=== PATIENT | male | born 1975 | race Caucasian/White ===

== ENCOUNTER 2020-11-13 11:41 | Emergency (ER) | payer MEDICAID ==
[~2020-11-13] VITALS: Ht 182.9 cm; Wt 88.6 kg
[2020-11-13 11:43] VITALS: BP 144/100
[2020-11-13] MEDS ORDERED: ketorolac trometh. 30mg/ml inj. IV ONE (11:55)
[2020-11-13] MEDS ORDERED: normal saline 1000ML IV soln IVB ONE (11:55)
[2020-11-13] MEDS ORDERED: ondansetron/PF 4mg/2ml inj IV ONE (11:55)
[2020-11-13 12:14] LABS: BASOPHILS % (AUTO) 0.1 % (0-1); EOSINOPHILS # (AUTO) 0.1 X10'3 (0-0.9); EOSINOPHILS % (AUTO) 1.2 % (0-6); HEMATOCRIT 48.6 % (42.0-52.0); HEMOGLOBIN 16.5 g/dl (14.0-17.9); LYMPHOCYTES # (AUTO) 1.7 X10'3 (1.1-4.8); LYMPHOCYTES % (AUTO) 14.9 % (21-51); MEAN CORPUSCULAR HEMOGLOBIN 29.7 PG (27.0-31.0); MEAN CORPUSCULAR HGB CONC 33.9 g/dL (33.0-36.5); MEAN CORPUSCULAR VOLUME 87.7 FL (78-98); MEAN PLATELET VOLUME 8.5 FL (7.4-10.4); MONOCYTES # (AUTO) 0.9 X10'3 (0-0.9); NEUTROPHILS # (AUTO) 8.5 X10'3 (1.8-7.7); NEUTROPHILS % (AUTO) 75.8 % (42-75); PLATELET COUNT 239 X10'3 (140-440); RED BLOOD COUNT 5.54 X10'6 (4.70-6.10); RED CELL DISTRIBUTION WIDTH 13.3 % (11.5-14.5); WHITE BLOOD COUNT 11.2 X10'3 (4.5-11.0)
[2020-11-13 12:19] LABS: ALANINE AMINOTRANSFERASE 65 U/L (12-78); ALBUMIN 4.3 G/DL (3.4-5.0); ALBUMIN/GLOBULIN RATIO 1.1 (1.1-1.5); ALKALINE PHOSPHATASE 99 IU/L (46-116); ANION GAP 7 (8-16); ASPARTATE AMINO TRANSFERASE 29 U/L (10-37); BILIRUBIN,TOTAL 0.3 MG/DL (0.1-1.0); BLOOD UREA NITROGEN 18 MG/DL (7-18); BUN/CREATININE RATIO 13.7 (5.4-32.0); CALCIUM 8.8 MG/DL (8.5-10.1); CHLORIDE 104 MMOL/L (99-107); CREATININE 1.31 MG/DL (0.60-1.10); ETHANOL < 0.010 GM/DL (0.0-0.010); GLUCOSE 111 MG/DL (70-104); LIPASE 67 U/L (73-393); POTASSIUM 4.1 MMOL/L (3.5-5.1); SODIUM 139 MMOL/L (135-145); TOTAL CARBON DIOXIDE 27.7 MMOL/L (24-32); TOTAL PROTEIN 8.1 G/DL (6.4-8.2); eGFR 59 ML/MIN
[2020-11-13 12:29] LABS: CLARITY,URINE SLIGHTLY CLOUDY (Clear); COLOR,URINE YELLOW (Yellow); GLUCOSE, URINE NEGATIVE (Neg); KETONES,URINE NEGATIVE (Neg); LEUKOCYTE ESTERASE ,URINE NEGATIVE (Neg); NITRITES, URINE NEGATIVE (Neg); OCCULT BLOOD,URINE LARGE (Neg); PH,URINE 6.5 (4.8-8.0); PROTEIN,URINE NEGATIVE (Neg); UROBILINOGEN,URINE 0.2 E.U/dL (0.2-1.0)
[2020-11-13 12:30] LABS: UA COLLECTION TYPE CLN CATCH MIDSTREAM
[2020-11-13 12:35] LABS: URINE AMPHETAMINE SCREEN POSITIVE (Neg); URINE BARBITUATE SCREEN NEGATIVE (Neg); URINE BENZODIAZEPINES SCREEN NEGATIVE (Neg); URINE CANNABINOID SCREEN NEGATIVE (Neg); URINE COCAINE SCREEN NEGATIVE (Neg); URINE METHADONE SCREEN NEGATIVE (Neg); URINE OPIATE SCREEN NEGATIVE (Neg); URINE PHENCYCLIDINE SCREEN NEGATIVE (Neg)
[2020-11-13 12:40] LABS: MUCUS STRANDS MODERATE /LPF (Neg); SQUAMOUS EPITHELIAL CELL,UR FEW /LPF (FEW)
[2020-11-13 12:41] LABS: RBC,URINE 50-100 /HPF (0-2)
[2020-11-13 12:42] LABS: BACTERIA,URINE FEW /HPF (Neg); WBC,URINE 0-4 /HPF (0-4)
[2020-11-13] MEDS ORDERED: CefTRIAXone 2gm/D5W 50ml BAG 50 ML IV ONE (13:10)
[2020-11-13] MEDS ORDERED: CEPH250T PO (13:11)
[2020-11-13] MEDS ORDERED: FLO0.4C PO (13:11)
[2020-11-13] MEDS ORDERED: HYDR-3965 PO (13:11)
[2020-11-13] MEDS ORDERED: tamsulosin 0.4mg capsule PO STA (13:14)
[2020-11-13] MEDS ORDERED: tamsulosin 0.4mg capsule PO SCH (21:00)
== END 2020-11-13 14:01 | disposition home or self-care (01) ==
LOC: ER 11:42
DX: N12 Tubulo-interstitial nephritis, not specified as acute or chronic (principal); F17.200 Nicotine dependence, unspecified, uncomplicated; Z87.440 Personal history of urinary (tract) infections; Z87.442 Personal history of urinary calculi
CPT/HCPCS: 36415; 74176; 80053; 80305; 80320; 81001; 83690; 85025; 96361; 96365; 96375; 99284; J0696; J1885; J2405; J7030

== ENCOUNTER 2022-03-01 10:29 | Emergency (ER) | payer MEDICAID ==
[~2022-03-01] VITALS: Ht 182.9 cm; Wt 88.6 kg
[2022-03-01 10:56] VITALS: BP 139/111
--- NOTE | 2022-03-01 12:00 | NUR ---
not in lobby
--- NOTE | 2022-03-01 12:25 | NUR ---
not in lobby 2nd call
--- NOTE | 2022-03-01 12:38 | NUR ---
not in lobby 3rd call
== END 2022-03-01 12:44 | disposition left against medical advice (07) ==
LOC: ER 10:30
DX: R22.32 Localized swelling, mass and lump, left upper limb (principal); Z53.21 Procedure and treatment not carried out due to patient leaving prior to being seen by health care provider

== ENCOUNTER 2022-12-28 20:51 | Emergency (ER) | payer MEDICAID ==
[~2022-12-28] VITALS: Ht 183.5 cm; Wt 81.8 kg
[2022-12-28 20:51] VITALS: BP 152/96
[2022-12-28] MEDS ORDERED: bacitracin 15gm ointment TP ONE (23:20)
[2022-12-28] MEDS ORDERED: NEOM30OI17 TOP (23:20)
== END 2022-12-29 00:07 | disposition home or self-care (01) ==
LOC: ER 20:51
DX: S80.812A Abrasion, left lower leg, initial encounter (principal); Z87.442 Personal history of urinary calculi; Z86.14 Personal history of Methicillin resistant Staphylococcus aureus infection; Z79.899 Other long term (current) drug therapy; X58.XXXA Exposure to other specified factors, initial encounter; Y93.89 Activity, other specified; Y92.89 Other specified places as the place of occurrence of the external cause; Y99.8 Other external cause status
CPT/HCPCS: 99282

== ENCOUNTER 2023-01-02 03:02 | Emergency (ER) | payer MEDICAID ==
[~2023-01-02] VITALS: Ht 182.9 cm; Wt 84.1 kg
[~2023-01-02 03:02] MED LIST: NEOM30OI17 TOP
[2023-01-02] MEDS ORDERED: rifampin 300mg capsule PO SCH (05:10)
[2023-01-02] MEDS ORDERED: DOXYCYCLINE 100MG CAPSULE PO STA (05:10)
[2023-01-02] MEDS ORDERED: RIFA150C7 CORPAK (05:13)
[2023-01-02] MEDS ORDERED: DOXY-11 PO (05:13)
[2023-01-02 05:48] VITALS: BP 135/87
== END 2023-01-02 05:49 | disposition home or self-care (01) ==
LOC: ER 03:03
DX: L03.116 Cellulitis of left lower limb (principal); Z87.442 Personal history of urinary calculi; Z86.14 Personal history of Methicillin resistant Staphylococcus aureus infection; Z90.49 Acquired absence of other specified parts of digestive tract; Z79.899 Other long term (current) drug therapy
CPT/HCPCS: 99283

== ENCOUNTER 2024-06-06 06:55 | Emergency (ER) | payer MEDICAID ==
[~2024-06-06] VITALS: Ht 182.9 cm; Wt 76.7 kg
[2024-06-06 07:05] VITALS: TEMP 98.6
[2024-06-06] MEDS: normal saline 1000ml 1,000 ML IV ONE (07:49)
[2024-06-06] MEDS: ketorolac trometh 15mg/ml vial 15 MG/ML ML IV ONE (07:49)
[2024-06-06] MEDS: HYDROmorphone 1 mg/ml syringe IV ONE (07:52)
[2024-06-06] MEDS: LIDOCAINE IV ONE ×2 (07:55→09:34)
[2024-06-06] MEDS: NORMAL SALINE IV ONE (07:55)
[2024-06-06 07:57] LABS: BASOPHILS % (AUTO) 0.4 % (0-1); EOSINOPHILS # (AUTO) 0.2 X10'3 (0-0.9); EOSINOPHILS % (AUTO) 3.8 % (0-6); HEMOGLOBIN 14.3 g/dl (14.0-17.9); LYMPHOCYTES # (AUTO) 1.8 X10'3 (1.1-4.8); LYMPHOCYTES % (AUTO) 32.2 % (21-51); MEAN CORPUSCULAR HEMOGLOBIN 28.8 PG (27.0-31.0); MEAN CORPUSCULAR HGB CONC 32.6 g/dL (33.0-36.5); MEAN CORPUSCULAR VOLUME 88.4 FL (78-98); MEAN PLATELET VOLUME 8.4 FL (7.4-10.4); MONOCYTES # (AUTO) 0.5 X10'3 (0-0.9); NEUTROPHILS % (AUTO) 53.6 % (42-75); PLATELET COUNT 248 X10'3 (140-440); RED BLOOD COUNT 4.98 X10'6 (4.70-6.10); RED CELL DISTRIBUTION WIDTH 14.5 % (11.5-14.5); WHITE BLOOD COUNT 5.5 X10'3 (4.5-11.0)
[2024-06-06 08:11] LABS: ALANINE AMINOTRANSFERASE 133 U/L (12-78); ALBUMIN 3.4 G/DL (3.4-5.0); ALBUMIN/GLOBULIN RATIO 0.9 (1.1-1.5); ALKALINE PHOSPHATASE 96 IU/L (46-116); ANION GAP 9 (8-16); ASPARTATE AMINO TRANSFERASE 81 U/L (10-37); BILIRUBIN,TOTAL 0.4 MG/DL (0.1-1.0); BLOOD UREA NITROGEN 17 MG/DL (7-18); BUN/CREATININE RATIO 13.5 (10.0-20.0); CALCIUM 8.7 MG/DL (8.5-10.1); CHLORIDE 105 MMOL/L (99-107); CREATININE 1.26 MG/DL (0.60-1.10); GLUCOSE 100 MG/DL (70-104); LIPASE 25 U/L (16-77); POTASSIUM 3.5 MMOL/L (3.5-5.1); SODIUM 142 MMOL/L (135-145); TOTAL CARBON DIOXIDE 28.1 MMOL/L (24-32); eCRCL 77 ML/MIN; eGFR 61 ML/MIN
[2024-06-06] MEDS: WATER IV ONE (09:34)
[2024-06-06] MEDS: DEXTROSE 5% IV ONE (09:34)
[2024-06-06 11:06] VITALS: BP 155/106; PULSE 64; RESP 16; O2SAT 97
== END 2024-06-06 11:10 | disposition home or self-care (01) ==
LOC: ER 06:56
DX: N20.0 Calculus of kidney (principal); Z98.890 Other specified postprocedural states; Z79.2 Long term (current) use of antibiotics
CPT/HCPCS: 36415; 74176; 80053; 83690; 85025; 96361; 96374; 96375; 99285; J1170; J1885; J3490; J7030; J7060

== ENCOUNTER 2024-07-24 17:07 | Emergency (ER) | payer MEDICAID ==
[~2024-07-24] VITALS: Ht 182.9 cm; Wt 76.4 kg
[2024-07-24 17:33] VITALS: RESP 16
[2024-07-24] MEDS ORDERED: SULF1TAB45 PO (17:48)
[2024-07-24] MEDS ORDERED: CEPH-585 PO (17:48)
[2024-07-24] MEDS: cephalexin 250mg capsule PO ONE (18:40)
[2024-07-24] MEDS: sulfamethoxazole/trimethoprim DS (800/160mg) tablet PO ONE (18:40)
[2024-07-24 18:46] VITALS: BP 132/81; PULSE 86; TEMP 98.2; O2SAT 98
== END 2024-07-24 18:45 | disposition home or self-care (01) ==
LOC: ER 17:07
DX: L03.114 Cellulitis of left upper limb (principal); F15.10 Other stimulant abuse, uncomplicated; Z88.1 Allergy status to other antibiotic agents; Z87.440 Personal history of urinary (tract) infections; Z90.49 Acquired absence of other specified parts of digestive tract
CPT/HCPCS: 99283